=== PATIENT | female | born 1940 | race Caucasian/White ===

== ENCOUNTER 2021-01-25 10:01 | Inpatient (IN) | payer OTHER, MEDICAID ==
[~2021-01-25] VITALS: Ht 157.5 cm; Wt 54.4 kg
[2021-01-25 10:05] VITALS: BP 134/55
--- NOTE | 2021-01-25 10:05 | NUR ---
[facility] TO ER BED 10
[2021-01-25] MEDS ORDERED: [UNRECOGNIZED DRUG - CODE] PO (10:16)
[2021-01-25] MEDS ORDERED: OMEP20EC11 PO (10:16)
[2021-01-25] MEDS ORDERED: ATOR20TA PO (10:16)
[2021-01-25] MEDS ORDERED: TEMA15CA24 PO (10:16)
[2021-01-25] MEDS ORDERED: SEVE800T6 PO (10:16)
[2021-01-25] MEDS ORDERED: GABA100C PO (10:16)
[2021-01-25] MEDS ORDERED: CARV3.12 PO (10:16)
--- NOTE | 2021-01-25 10:19 | NUR ---
80/F MARYAMA FROM [facility] DIALYSIS, PER EMS PATIENT BEGAN C/O WEAKNESS AND HEADACHE UPON ARRIVAL TO HER DIALYSIS APPOINTMENT. EMS STATES STAFF AT [facility] DID NOT START DIALYSIS AND CALLED 911. PATIENT STATES TO EMS SHE HAS HAD INTERMITTENT HEADACHE X3 DAYS, REPORTS TAKING TYLENOL WITH NO RELIEF. UPON ARRIVAL PATIENT LYING IN GURNEY WITH EYES CLOSED, OPENS EYES WHEN SPOKEN TO, PATIENT IS ALERT AND ORIENTED X4, ABLE TO ANSWER QUESTIONS APPROPRIATELY. PATIENT DENIES CP, SOB, FEVER, N/V/D. PATIENT PLACED IN GOWN ON BEDSIDE SALES SERVICE COORDINATOR.
--- NOTE | 2021-01-25 11:07 | NUR ---
ANIMAL TRAINER SUPERVISOR AT BEDSIDE
--- NOTE | 2021-01-25 11:10 | NUR ---
LAB AT BEDSIDE
[2021-01-25 11:31] LABS: BASOPHILS % (AUTO) 0.5 % (0.0-2.0); EOSINOPHILS # (AUTO) 0.2 K/uL (0-0.4); EOSINOPHILS % (AUTO) 2.7 % (0.0-4.0); HEMATOCRIT 34.7 % (36-48); HEMOGLOBIN 11.4 g/dL (12.0-16.0); LYMPHOCYTES # (AUTO) 1.8 K/uL (2.5-16.5); LYMPHOCYTES % (AUTO) 25.6 % (20.5-51.1); MEAN CORPUSCULAR HEMOGLOBIN 29 pg (27-31); MEAN CORPUSCULAR HGB CONC 33 g/dL (33-37); MEAN CORPUSCULAR VOLUME 87.9 fL (80-94); MONOCYTES # (AUTO) 0.4 K/uL (0.8-1.0); MONOCYTES % (AUTO) 5.3 % (1.7-9.3); NEUTROPHILS # (AUTO) 4.5 K/uL (1.8-7.7); NEUTROPHILS % (AUTO) 65.9 % (42.2-75.2); PLATELET COUNT (AUTO) 223 K/uL (140-450); RED BLOOD CELL COUNT(AUTO) 3.95 MIL/uL (4.20-5.40); RED CELL DISTRIBUTION WIDTH 15.5 % (11.6-13.7); WHITE BLOOD COUNT (AUTO) 6.9 K/uL (4.8-10.8)
--- NOTE | 2021-01-25 11:39 | NUR ---
PATIENT TAKEN TO CT VIA BRANDI
[2021-01-25 11:49] LABS: ALBUMIN 3.3 g/dL (3.4-5.0); ANION GAP 21.1 (8-16); ASPARTATE AMINOTRANSFERASE 14 U/L (15-37); CARBON DIOXIDE 23.1 mmol/L (21-32); CHLORIDE 99 mmol/L (98-107); GLUCOSE 109 mg/dL (74-106); MAGNESIUM 2.5 mg/dL (1.8-2.4); SODIUM SERUM 137 mmol/L (136-145); TOTAL BILIRUBIN 0.4 mg/dL (0.0-1.0)
[2021-01-25 11:53] LABS: CREATININE 12.4 mg/dL (0.6-1.3); POTASSIUM 6.2 mmol/L (3.5-5.1); UREA NITROGEN, BLOOD 92 mg/dL (7-18)
[2021-01-25] MEDS ORDERED: INSULIN REGULAR, HUMAN 100 UNIT/ML VIAL IVP ONE (11:55)
[2021-01-25] MEDS ORDERED: DEXTROSE 50% 50 ML SYR IVP ONE ×2 (11:55→13:26)
[2021-01-25] MEDS ORDERED: ALBUTEROL 0.083% 2.5 MG/3 ML NEBU INH ONE (11:55)
--- NOTE | 2021-01-25 12:30 | NUR ---
TWO NURSES UNSUCCESSFUL AT IV INSERTION. DR. SAGAR BOLTON.
[2021-01-25] MEDS ORDERED: DOCUSATE SODIUM 100 MG GELCAP PO PRN (12:45)
[2021-01-25] MEDS ORDERED: guaiFENesin DM 200/20 MG-10 ML 10 ML UDC PO PRN (12:45)
[2021-01-25] MEDS ORDERED: ZOLPIDEM 5 MG TAB PO PRN (12:45)
[2021-01-25] MEDS ORDERED: ONDANSETRON 4 MG/2 ML VIAL IM/IVP PRN (12:45)
[2021-01-25] MEDS ORDERED: HYDROcodone/APAP 7.5/325 MG 1 TAB PO PRN (12:45)
[2021-01-25] MEDS ORDERED: NACL 0.9% 1,000 ML IV SCH (12:45)
[2021-01-25] MEDS ORDERED: POTASSIUM CHLORIDE 10 MEQ TABER PO PRN (12:45)
[2021-01-25] MEDS ORDERED: ACETAMINOPHEN 325 MG TAB PO PRN (12:45)
[2021-01-25] MEDS ORDERED: TEMAZEPAM 15 MG CAP PO PRN (12:50)
[2021-01-25] MEDS ORDERED: CALCIUM GLUCONATE 10% 1000 MG/10 ML VIAL IVP SCH (12:50)
[2021-01-25] MEDS ORDERED: SEVELAMER CARBONATE 800 MG TAB PO SCH (13:00)
--- NOTE | 2021-01-25 13:04 | NUR ---
DR. KEITH BEDSIDE FOR ULTRASOUND GUIDED IV INSERTION ATTEMPT.
[2021-01-25 15:43] LABS: CHOL/HDL RATIO 3.5 (1-4.5); FREE T4 (FREE THYROXINE) 0.79 ng/dL (0.76-1.46); PHOSPHORUS 8.7 mg/dL (2.5-4.9); THYROID STIMULATING HORMONE 1.75 uIU/mL (0.34-3.74)
--- NOTE | 2021-01-25 15:45 | NUR ---
PATIENT APPEARS TO BE RESTING WITH EYES CLOSED IN BED, ON BEDSIDE RESIDENTIAL PROGRAM COORDINATOR, WILL CONTINUE TO MONITOR.
--- NOTE | 2021-01-25 16:23 | NUR ---
SPOKE TO DR. ONTIVEROS AND HE WILL ORDER DIALYSIS FOR PATIENT.
--- NOTE | 2021-01-25 16:45 | NUR ---
PT ARRIVED TO [facility] BED 114. PT STABLE. CONSENT FOR DIALYSIS OBTAINED. NO S/S OF DISTRESS. CALL LIGHT IN REACH. ALL SAFETY MEASURES IN PLACE. DIALYSIS NURSE AT BEDSIDE
[2021-01-25] MEDS: SEVELAMER CARBONATE 800 MG TAB PO SCH (17:41)
--- NOTE | 2021-01-25 17:50 | NUR ---
Patient will be admitted to care of DR. MERRITT. Admited to TELE. Will go to room 114A. Belongings list completed. Report to JEANIE.
--- NOTE | 2021-01-25 19:40 | NUR ---
ENDORSED PT TO YEAST MAKER NURSE. PT STABLE. NO S/S OF DISTRESS. BREATHING SYMMETRICAL. CALL LIGHT IN REACH. ALL SAFETY MEASURES IN PLACE.
--- NOTE | 2021-01-25 19:41 | NUR ---
RECEIVED REPORT FROM AM NURSE. PATIENT WITH ONGOING DIALYSIS. NO S/S OF RESPIRATORY DISTRESS. AV SHUNT ON THE LEFT UPPER ARM. IV LINE ON THE RIGHT ANTECUBITAL SALINE LOCK. NO COMPLAINTS OF PAIN AT THIS TIME. LUXEMBOURGER SPEAKING. WILL CONTINUE TO MONITOR.
[2021-01-25 20:00] VITALS: BP 146/96
--- NOTE | 2021-01-25 22:00 | NUR ---
DIALYSIS COMPLETED OUTPUT 3000 ML. PATIENT IS STABLE. NO SOB NOTED.
--- NOTE | 2021-01-25 23:10 | NUR ---
ASSISTED PATIENT TO THE TOILET AND ASSISTED BACK TO THE BED.
[2021-01-26] VITALS: BP 153/63
--- NOTE | 2021-01-26 03:30 | NUR ---
PATIENT WAS MOVED TO ROOM 121A CAUSE PT IS FALL RISK.
[2021-01-26 04:00] VITALS: BP 148/66
[2021-01-26 07:03] LABS: BASOPHILS % (AUTO) 0.3 % (0.0-2.0); EOSINOPHILS # (AUTO) 0.1 K/uL (0-0.4); HEMATOCRIT 33.3 % (36-48); LYMPHOCYTES # (AUTO) 1.4 K/uL (2.5-16.5); LYMPHOCYTES % (AUTO) 24.4 % (20.5-51.1); MEAN CORPUSCULAR HEMOGLOBIN 29 pg (27-31); MEAN CORPUSCULAR HGB CONC 33 g/dL (33-37); MEAN CORPUSCULAR VOLUME 87.3 fL (80-94); MONOCYTES # (AUTO) 0.3 K/uL (0.8-1.0); MONOCYTES % (AUTO) 4.9 % (1.7-9.3); NEUTROPHILS # (AUTO) 3.8 K/uL (1.8-7.7); NEUTROPHILS % (AUTO) 68.4 % (42.2-75.2); PLATELET COUNT (AUTO) 182 K/uL (140-450); RED BLOOD CELL COUNT(AUTO) 3.82 MIL/uL (4.20-5.40); RED CELL DISTRIBUTION WIDTH 15.5 % (11.6-13.7); WHITE BLOOD COUNT (AUTO) 5.6 K/uL (4.8-10.8)
[2021-01-26 07:38] LABS: ANION GAP 19.1 (8-16); CARBON DIOXIDE 26.7 mmol/L (21-32); CHLORIDE 100 mmol/L (98-107); GLUCOSE 89 mg/dL (74-106); POTASSIUM 4.8 mmol/L (3.5-5.1); SODIUM SERUM 141 mmol/L (136-145)
--- NOTE | 2021-01-26 07:40 | NUR ---
ENDORSED TO AM NURSE FOR CONTINUITY OF CARE. PATIENT IN STABLE CONDITION.
[2021-01-26 07:41] LABS: CREATININE 8.2 mg/dL (0.6-1.3)
[2021-01-26 08:00] VITALS: BP 121/60
--- NOTE | 2021-01-26 08:22 | NUR ---
PATIENT HAS BEEN SCREENED AND CATEGORIZED MODERATE NUTRITION RISK. PATIENT WILL BE SEEN WITHIN 3-5 DAYS OF ADMISSION. 01/26/21 01/30/[address]
[2021-01-26 09:38] LABS: UREA NITROGEN, BLOOD 54 mg/dL (7-18)
[2021-01-26] MEDS: GABAPENTIN 100 MG CAP PO SCH (09:38)
[2021-01-26] MEDS: PANTOPRAZOLE 40 MG TABEC PO SCH (09:38)
[2021-01-26] MEDS: VIT-B COMP/VIT-C/FOLIC ACID 1 TAB PO SCH (09:38)
[2021-01-26] MEDS: SEVELAMER CARBONATE 800 MG TAB PO SCH ×3 (09:38→17:00)
[2021-01-26] MEDS: carvediloL 3.125 MG TAB PO SCH (09:39)
[2021-01-26] MEDS: ATORVASTATIN 20 MG TAB PO SCH (09:41)
[2021-01-26 12:00] VITALS: BP 142/71
[2021-01-26 16:00] VITALS: BP 114/57
[2021-01-26 20:00] VITALS: BP 142/62
[2021-01-27] VITALS: BP 138/57
--- NOTE | 2021-01-27 02:29 | NUR ---
PATIENT AWAKE APPEARS TO BE ALERT HAITIAN SPEAKING SINUS HAS LEFT AV SHUNT WITH GOOD THRILL WHEN TOUCHED. HAS RIGHT HAND WITH 22 GA PATENT TO FLUSH NO C/O NO SIGNS OF ACUTE DISTRESS.
[2021-01-27 04:00] VITALS: BP 130/62
[2021-01-27 06:23] LABS: BASOPHILS % (AUTO) 0.3 % (0.0-2.0); EOSINOPHILS # (AUTO) 0.2 K/uL (0-0.4); EOSINOPHILS % (AUTO) 3.1 % (0.0-4.0); HEMATOCRIT 32.7 % (36-48); HEMOGLOBIN 10.8 g/dL (12.0-16.0); LYMPHOCYTES # (AUTO) 1.9 K/uL (2.5-16.5); LYMPHOCYTES % (AUTO) 31.2 % (20.5-51.1); MEAN CORPUSCULAR HEMOGLOBIN 29 pg (27-31); MEAN CORPUSCULAR HGB CONC 33 g/dL (33-37); MEAN CORPUSCULAR VOLUME 87.9 fL (80-94); MONOCYTES # (AUTO) 0.4 K/uL (0.8-1.0); MONOCYTES % (AUTO) 6.1 % (1.7-9.3); NEUTROPHILS # (AUTO) 3.6 K/uL (1.8-7.7); NEUTROPHILS % (AUTO) 59.3 % (42.2-75.2); PLATELET COUNT (AUTO) 202 K/uL (140-450); RED BLOOD CELL COUNT(AUTO) 3.71 MIL/uL (4.20-5.40); RED CELL DISTRIBUTION WIDTH 15.5 % (11.6-13.7); WHITE BLOOD COUNT (AUTO) 6.1 K/uL (4.8-10.8)
[2021-01-27 06:25] LABS: ANION GAP 19.3 (8-16); CARBON DIOXIDE 25.3 mmol/L (21-32); CHLORIDE 97 mmol/L (98-107); GLUCOSE 88 mg/dL (74-106); POTASSIUM 5.6 mmol/L (3.5-5.1); SODIUM SERUM 136 mmol/L (136-145)
[2021-01-27 06:29] LABS: CREATININE 10.3 mg/dL (0.6-1.3); UREA NITROGEN, BLOOD 75 mg/dL (7-18)
--- NOTE | 2021-01-27 07:25 | NUR ---
RECEIVED BEDSIDE REPORT FROM DATA WAREHOUSING ENGINEER NURSE FOR CONTINUITY OF CARE. PT IS AWAKE AND ALERT. CHINESE SPEAKING. ON RA WITH BREATHING UNLABORED. ON TELE MONITOR. SKIN IS WARM AND DRY. IV IS IN INTACT ON THE RIGHT WRIST 22 GAUGE. LEFT UPPER ARM AV SHUNT IN PLACE. PT IS STABLE. PLAN OF CARE DISCUSSED.
[2021-01-27 08:00] VITALS: BP 122/75
[2021-01-27] MEDS: SEVELAMER CARBONATE 800 MG TAB PO SCH ×3 (08:00→16:54)
[2021-01-27] MEDS: VIT-B COMP/VIT-C/FOLIC ACID 1 TAB PO SCH (09:04)
[2021-01-27] MEDS: carvediloL 3.125 MG TAB PO SCH (09:04)
[2021-01-27] MEDS: ATORVASTATIN 20 MG TAB PO SCH (09:04)
[2021-01-27] MEDS: GABAPENTIN 100 MG CAP PO SCH (09:04)
[2021-01-27] MEDS: PANTOPRAZOLE 40 MG TABEC PO SCH (09:05)
--- NOTE | 2021-01-27 09:34 | NUR ---
HD NURSE AT BEDSIDE. HD HAS BEEN STARTED IN THE LEFT UA AV FISTULA. PT IS STABLE AT THIS TIME.
[2021-01-27 10:07] LABS: T4 (THYROXINE) 6.9 ug/dL (4.5-12.0)
--- NOTE | 2021-01-27 11:00 | NUR ---
PT IS SITTING UP IN BED. HD IS STILL IN PROGRESS. PT TOLERATING IT WELL. NO DISTRESS NOTED. VS ARE STABLE.
[2021-01-27 12:00] VITALS: BP 114/49
--- NOTE | 2021-01-27 13:00 | NUR ---
HD IS FINISHED AND HD NURSE IS AT BEDSIDE ASSESSING PT. 2L LITERS WERE TAKEN OUT. BLEEDING WAS CONTROLLED ON AV FISTULA. PT IS STABLE.
--- NOTE | 2021-01-27 14:08 | NUR ---
DC PLANNING: THE PATIENT WAS BIBA FROM HER DIALYSIS CENTER WITH C/O WEAKNESS AND QUAN. PATIENT WITH ALOC AND K+ 6.2, CXR SHOWS BRONCHITIS. THE PATIENT IS FOLLOWED BY DR ONTIVEROS, SHE DID NOT FINISH HER DIALYSIS ON DAY OF ADMISSION, ATTENDING WILL CONSULT DR ONTIVEROS FOR HD ORDERS. PATIENT HAD AN INCOMPLETE DIALYSIS SESSION YESTERDAY AND IS HAVING DIALYSIS TODAY. CM SPOKE WITH THE PATIENTS SON CHAD BY PHONE AND CONFIRMED HER ADDRESS AND CONTACT INFORMATION. THE PATIENT LIVES IN A SINGLE STORY HOUSE WITH HER SON CHAD, DTR IN LAW AND 2 GRANDCHILDREN. SHE HAS A CAREGIVER THROUGH [employer] DAYS A WEEK FOR 6 HOURS AND CHAD IS HOME IN THE AFTERNOON SO PATIENT ALWAYS HAS SOMEONE WITH HER. SHE IS ABLE TO AMBULATE SHORT DISTANCES IN THE HOUSE AND SOMETIMES USES A FWW OR WC IF SHE'S TIRED. SHE REQUIRES ASSISTANCE WITH ADL'S AND HAS NOT BEEN IN A SNF. SHE HAD HOME HEALTH A FEW MONTHS AGO BUT CHAD COULDN'T REMEMBER THE NAME AND HAS NO PREFERENCE FOR HOME HEALTH MOVING FORWARD. AFTER SPEAKING WITH P.T. HOME P.T. IS RECOMMENDED, CM WILL FOLLOW UP. THE PATIENT SEES HER PCP DR LIU REGULARLY, AND GOES TO [facility] ON , , AT 9:00 AM, USES [employer] [facility] TO GET TO AND FROM DIALYSIS. DC PLAN IS TO RETURN HOME WHEN STABLE, CM WILL FOLLOW FOR NEEDS. Addendum: 01/28/21 at 1110 by Debbie Jorge CM DC PLANNING: PATIENT WITH PLAN TO DC TO HOME TODAY. ORDERS FOR HOME HEALTH P.T., REFERRAL FAXED TO [facility]. CM WILL FOLLOW FOR NEEDS. Addendum: 01/28/21 at 1231 by Debbie Jorge CM DC PLANNING: PATIENT ACCEPTED ON SERVICE WITH [facility] ([phone]), ENDORSED THAT THE PATIENT HAS A DC ORDER. CM WILL FOLLOW FOR NEEDS.
--- NOTE | 2021-01-27 15:00 | NUR ---
PT IS SLEEPING WITH CHEST RISE AND FALL SYMMETRICAL. ON RA. LEFT AV FISTULA DRY AND NO BLEEDING NOTED. BEDSIDE TABLE WITH BELONGINGS IN REACH. BED IN LOWEST POSITION. PT STABLE.
[2021-01-27 16:00] VITALS: BP 134/69
--- NOTE | 2021-01-27 17:00 | NUR ---
PT IS AWAKE. NO DISTRESS NOTED. IN BED IN SEMI FOWLERS POSITION. PT DENIES PAIN. WILL CONTINUE TO MONITOR.
--- NOTE | 2021-01-27 19:38 | NUR ---
ENDORSED PT TO SENIOR TECHNICAL WRITER NURSE FOR CONTINUITY OF CARE. PT IS STABLE AT THIS TIME. PLAN OF CARE DISCUSSED.
--- NOTE | 2021-01-27 19:40 | NUR ---
RECEIVED BEDSIDE REPORT FROM DAY SHIFT RN FOR CONTINUITY OF CARE. PT IS ON RA. LAO SPEAKING ONLY. PT HAS A RIGHT WRIST 22 SALINE LOCK. LEFT AV FISTULA. PT IS NOT IN ANY DISTRESS AND HAS NO COMPLAINS AT THIS TIME. CALL LIGHT WITHIN REACH. BEDSIDE TABLE WITHIN REACH. WILL CONTINUE TO MONITOR THE PT AND PROVIDE PLAN OF CARE.
[2021-01-27 20:00] VITALS: BP 141/68
--- NOTE | 2021-01-27 22:30 | NUR ---
PT IS SLEEPING IN BED. PT SHOWS NO SIGNS OF DISTRESS. CHEST RISE AND FALL. CALL LIGHT WITHIN REACH. ALL SAFETY MEASURES TAKEN. WILL CONTINUE TO PROVIDE PLAN OF CARE.
[2021-01-28] VITALS: BP 128/54
--- NOTE | 2021-01-28 01:10 | NUR ---
PT IS AWAKE AND REQUESTED SOME SNACKS AND TEA. SNACKS AND TEA WAS PROVIDED. NO FURTHER COMPLAINS FROM THE PT. CALL LIGHT WITHIN REACH. ALL SAFETY MEASURES TAKEN. WILL CONTINUE TO MONITOR THE PT.
--- NOTE | 2021-01-28 02:30 | NUR ---
PT IS SLEEPING IN BED. PT IS NOT IN ANY DISTRESS. CHEST RISE AND FALL. WILL CONTINUE TO MONITOR THE PT.
[2021-01-28 04:00] VITALS: BP 134/64
--- NOTE | 2021-01-28 07:10 | NUR ---
ENDORSED PT TO DAY SHIFT RN FOR CONTINUITY OF CARE. PT IS STABLE. SIGNING OFF.
--- NOTE | 2021-01-28 07:15 | NUR ---
RECEIVED BEDSIDE REPORT FROM FILM PROCESS OPERATOR NURSE FOR CONTINUITY OF CARE. PT IS AWAKE AND ALERT. A&OX4. ON RA WITH BREATHING UNLABORED. SR ON TELE MONITOR. AMBULATORY INDEPENDENTLY. SKIN IS WARM, DRY, AND INTACT. IV IS IN THE RIGHT WRIST 22 GAUGE. PT IS STABLE. PLAN OF CARE DISCUSSED.
[2021-01-28 07:33] LABS: BASOPHILS % (AUTO) 0.3 % (0.0-2.0); EOSINOPHILS # (AUTO) 0.1 K/uL (0-0.4); EOSINOPHILS % (AUTO) 2.1 % (0.0-4.0); HEMATOCRIT 32.1 % (36-48); HEMOGLOBIN 10.7 g/dL (12.0-16.0); LYMPHOCYTES # (AUTO) 1.5 K/uL (2.5-16.5); LYMPHOCYTES % (AUTO) 30.6 % (20.5-51.1); MEAN CORPUSCULAR HEMOGLOBIN 29 pg (27-31); MEAN CORPUSCULAR HGB CONC 33 g/dL (33-37); MEAN CORPUSCULAR VOLUME 87.2 fL (80-94); MONOCYTES # (AUTO) 0.3 K/uL (0.8-1.0); NEUTROPHILS # (AUTO) 3.1 K/uL (1.8-7.7); PLATELET COUNT (AUTO) 137 K/uL (140-450); RED BLOOD CELL COUNT(AUTO) 3.69 MIL/uL (4.20-5.40); RED CELL DISTRIBUTION WIDTH 15.2 % (11.6-13.7)
[2021-01-28 07:38] LABS: CARBON DIOXIDE 24.7 mmol/L (21-32); CHLORIDE 100 mmol/L (98-107); GLUCOSE 109 mg/dL (74-106); POTASSIUM 4.7 mmol/L (3.5-5.1); SODIUM SERUM 136 mmol/L (136-145); UREA NITROGEN, BLOOD 59 mg/dL (7-18)
[2021-01-28 08:00] VITALS: BP 142/59
[2021-01-28] MEDS: VIT-B COMP/VIT-C/FOLIC ACID 1 TAB PO SCH (09:05)
[2021-01-28] MEDS: ATORVASTATIN 20 MG TAB PO SCH (09:06)
[2021-01-28] MEDS: PANTOPRAZOLE 40 MG TABEC PO SCH (09:06)
[2021-01-28] MEDS: GABAPENTIN 100 MG CAP PO SCH (09:06)
[2021-01-28] MEDS: carvediloL 3.125 MG TAB PO SCH (09:06)
[2021-01-28] MEDS: SEVELAMER CARBONATE 800 MG TAB PO SCH ×2 (09:06→11:47)
--- NOTE | 2021-01-28 09:30 | NUR ---
PT IS UP AT BEDSIDE CHANGING GOWN. PT IS EATING BREAKFAST WELL AT BEDSIDE. NO DISTRESS NOTED. DENIES PAIN. WILL CONTINUE TO MONITOR.
--- NOTE | 2021-01-28 11:30 | NUR ---
PT IS AWAKE AND SITTING UP IN BED. NO DISTRESS NOTED. PT DENIES PAIN. PT STABLE. CALL LIGHT WITHIN REACH.
[2021-01-28 12:00] VITALS: BP 132/60
[2021-01-28 12:26] VITALS: BP 142/59
--- NOTE | 2021-01-28 13:30 | NUR ---
DISCHARGE INSTRUCTIONS PROVIDED. IV REMOVED AND BLEEDING CONTROLLED. ID BAND REMOVED. DAUGHTER AT BEDSIDE AND PT VERBALIZED UNDERSTANDING OF DISCHARGE INSTRUCTIONS. TRANSLATED IN SUDANESE BY DAUGHTER. HOME HEALTH INSTRUCTIONS GIVEN FOR PT. PANTS WERE PROVIDED TO PT. SHE CHANGED INTO HER OWN CLOTHING AND WILL BE DISCHARGE SHORTLY.
--- NOTE | 2021-01-28 13:40 | NUR ---
PT WAS TAKEN BY WHEELCHAIR TO DAUGHTER'S CARE WHERE SHE WAS DISCHARGED FROM THE HOSPITAL. PT IS STABLE. VS ARE STABLE. PT DISCHARGED.
== END 2021-01-28 14:28 | disposition home health service (06) | DRG 640 ==
LOC: MED 10:01 → MTU 12:41
PROVIDERS: ADMIT Family Medicine; ATTEND Family Medicine
PROC: 5A1D70Z Performance of Urinary Filtration, Intermittent, Less than 6 Hours Per Day (ICD-10-PCS; principal; 2021-01-25)
PROC: 5A1D70Z Performance of Urinary Filtration, Intermittent, Less than 6 Hours Per Day (ICD-10-PCS; 2021-01-26)
DX: E87.5 Hyperkalemia (principal); G93.41 Metabolic encephalopathy; N17.0 Acute kidney failure with tubular necrosis; N18.6 End stage renal disease; E44.1 Mild protein-calorie malnutrition; I12.0 Hypertensive chronic kidney disease with stage 5 chronic kidney disease or end stage renal disease; E83.41 Hypermagnesemia; E11.9 Type 2 diabetes mellitus without complications; I10 Essential (primary) hypertension; D63.8 Anemia in other chronic diseases classified elsewhere; M10.9 Gout, unspecified; E78.5 Hyperlipidemia, unspecified; J40 Bronchitis, not specified as acute or chronic; M19.90 Unspecified osteoarthritis, unspecified site; I48.91 Unspecified atrial fibrillation; Z20.822 Contact with and (suspected) exposure to COVID-19; J11.1 Influenza due to unidentified influenza virus with other respiratory manifestations; E11.22 Type 2 diabetes mellitus with diabetic chronic kidney disease; Z68.21 Body mass index [BMI] 21.0-21.9, adult; Z90.49 Acquired absence of other specified parts of digestive tract; Z99.2 Dependence on renal dialysis
CPT/HCPCS: 36415; 70450; 71045; 80048; 80053; 82150; 83036; 83690; 83735; 83880; 84100; 84436; 84439; 84443; 84479; 84484; 85025; 85610; 85730; 87081; 93005; 94640; 96374; 96375; 97112; 97116; 97163-GP; 97530; 99285; J1815; J7613; Q0092

== ENCOUNTER 2022-03-02 12:20 | Emergency (ER) | payer OTHER, MEDICAID ==
[~2022-03-02] VITALS: Ht 160 cm; Wt 77.1 kg
[~2022-03-02 12:20] MED LIST: ATOR20TA PO; CARV3.12 PO; GABA100C PO; OMEP20EC11 PO; SEVE800T6 PO; TEMA15CA24 PO; [UNRECOGNIZED DRUG - CODE] PO
--- NOTE | 2022-03-02 12:23 | NUR ---
PT [facility] BLS [id number]
[2022-03-02 12:38] VITALS: BP 107/66
[2022-03-02] MEDS ORDERED: KETOROLAC 30 MG/ML VIAL IVP ONE (13:00)
[2022-03-02] MEDS ORDERED: NACL 0.9% 1,000 ML IV ONE (13:00)
--- NOTE | 2022-03-02 13:00 | NUR ---
First contact with pt. Was on break when pt arrived. Pt bib ems for feeling generalized weakness after dialysis. Pt completed dial and went home before calling ems. Pt a/o x 4, vss, no ss of acute distress, breathing equal and unlabored, speech clear, on monitor, IV started and patent.
[2022-03-02] MEDS ORDERED: CYCLOBENZAPRINE 10 MG TAB PO ONE (13:05)
[2022-03-02] MEDS ORDERED: ACETAMINOPHEN EXTRA STRENGTH 500 MG TAB PO ONE (13:05)
[2022-03-02] MEDS ORDERED: METOCLOPRAMIDE 10 MG/2 ML INJ VIAL IVP ONE (13:05)
[2022-03-02 13:07] LABS: BASOPHILS % (AUTO) 0.3 % (0.0-2.0); EOSINOPHILS # (AUTO) 0.1 K/uL (0-0.4); EOSINOPHILS % (AUTO) 0.8 % (0.0-4.0); HEMOGLOBIN 9.8 g/dL (12.0-16.0); LYMPHOCYTES # (AUTO) 1.5 K/uL (2.5-16.5); MEAN CORPUSCULAR HEMOGLOBIN 31 pg (27-31); MEAN CORPUSCULAR HGB CONC 33 g/dL (33-37); MEAN CORPUSCULAR VOLUME 94.4 fL (80-94); MONOCYTES # (AUTO) 0.3 K/uL (0.8-1.0); MONOCYTES % (AUTO) 3.5 % (1.7-9.3); NEUTROPHILS # (AUTO) 5.9 K/uL (1.8-7.7); NEUTROPHILS % (AUTO) 76.4 % (42.2-75.2); PLATELET COUNT (AUTO) 209 K/uL (140-450); RED BLOOD CELL COUNT(AUTO) 3.17 MIL/uL (4.20-5.40); RED CELL DISTRIBUTION WIDTH 14.9 % (11.6-13.7); WHITE BLOOD COUNT (AUTO) 7.7 K/uL (4.8-10.8)
[2022-03-02 13:35] LABS: ALBUMIN 4.1 g/dL (3.4-5.0); ANION GAP 18.2 (8-16); ASPARTATE AMINOTRANSFERASE 8 U/L (15-37); CARBON DIOXIDE 29.4 mmol/L (21-32); CHLORIDE 95 mmol/L (98-107); GLUCOSE 125 mg/dL (74-106); POTASSIUM 3.6 mmol/L (3.5-5.1); SODIUM SERUM 139 mmol/L (136-145); TOTAL BILIRUBIN 0.4 mg/dL (0.0-1.0); UREA NITROGEN, BLOOD 32 mg/dL (7-18)
[2022-03-02 13:46] LABS: CREATININE 4.6 mg/dL (0.6-1.3)
[2022-03-02] MEDS ORDERED: METO-485 PO (14:09)
[2022-03-02] MEDS ORDERED: CYCL-711 PO (14:09)
[2022-03-02] MEDS ORDERED: ACET-10509 PO (14:09)
[2022-03-02] MEDS ORDERED: METOCLOPRAMIDE 10 MG/2 ML INJ VIAL ONE (15:29)
[2022-03-02] MEDS ORDERED: ACETAMINOPHEN EXTRA STRENGTH 500 MG TAB ONE (15:29)
[2022-03-02] MEDS ORDERED: CYCLOBENZAPRINE 10 MG TAB ONE (15:29)
[2022-03-02] MEDS ORDERED: KETOROLAC 30 MG/ML VIAL ONE (15:34)
--- NOTE | 2022-03-02 15:44 | NUR ---
Pt medicated as ordered. Pt tolerating well. Vss, no ss of acute distress, breathing equal and unlabored, speech clear.
--- NOTE | 2022-03-02 16:34 | NUR ---
Pt demonstrated ambulation well, as requested by . MD notified.
--- NOTE | 2022-03-02 17:00 | NUR ---
MD gave order to DC without UA.
[2022-03-02 17:10] VITALS: BP 100/46
--- NOTE | 2022-03-02 17:19 | NUR ---
ACI given and reviewed with pt. Pt verbalized understanding, will follow up with primary and is aware of px. Pt a/o x 4, vss, no ss of acute distress, breathing equal and unlabored, speech clear, iv removed and inspected for patency. Spoke with son Csotty who is on his way to bulk picker patient from waiting room. Pt ambulated to waiting room with escort and without incident.
== END 2022-03-02 16:40 | disposition home or self-care (01) ==
LOC: MED 12:20
DX: R11.2 Nausea with vomiting, unspecified (principal); Z20.822 Contact with and (suspected) exposure to COVID-19; M54.2 Cervicalgia; R51.9 Headache, unspecified; E87.8 Other disorders of electrolyte and fluid balance, not elsewhere classified; D53.9 Nutritional anemia, unspecified; N18.6 End stage renal disease; I10 Essential (primary) hypertension; E11.9 Type 2 diabetes mellitus without complications; Z99.2 Dependence on renal dialysis; Z79.4 Long term (current) use of insulin; Z79.899 Other long term (current) drug therapy
CPT/HCPCS: 36415; 71045; 80053; 83605; 85025; 87040; 87426; 87804; 96374; 96375; 99284; J1885; J2765; Q0092